=== PATIENT | male | born 1990 | race African-American/Black ===

== ENCOUNTER 2019-10-23 09:49 | Inpatient (IN) | payer OTHER ==
[~2019-10-23] VITALS: Ht 170.2 cm; Wt 48.5 kg
[2019-10-23 09:50] VITALS: BP 133/90
[2019-10-23 10:48] LABS: ABSOLUTE NEUTROPHILS 3.7 thou/uL (1.4-8.2); BASOPHILS 0.4 % (0.0-2.0); HEMATOCRIT 44.2 % (42.0-52.0); LYMPHOCYTES 24.3 % (24.0-44.0); MCH 29.5 pg (26.0-34.0); MCV 86.5 fL (80.0-100.0); MONOCYTES 8.9 % (1.0-8.0); PLATELET COUNT 257 thou/uL (150-400); POLYS 66.4 % (36.0-66.0); RBC 5.11 mil/uL (4.50-6.00); RDW 13.7 % (10.5-14.5); WBC 5.6 thou/uL (4.0-11.0)
[2019-10-23 10:52] LABS: CALCIUM 8.8 mg/dL (8.5-10.1); CREATININE 1.2 mg/dL (0.7-1.3); POTASSIUM 3.5 mmol/L (3.5-5.1)
[2019-10-23 10:58] LABS: ALBUMIN 3.8 g/dL (3.4-5.0); TOTAL BILIRUBIN 0.5 mg/dL (<0.1-1.0); TOTAL PROTEIN 8.3 g/dL (6.4-8.2)
[2019-10-23 13:58] VITALS: BP 140/50
[2019-10-23 14:02] VITALS: BP 140/50
--- NOTE | 2019-10-23 15:27 | H ---
[facility] [place] [address] HISTORY AND PHYSICAL Name: CALOS GORDILLO II Room #: 460-P ADM IN M.R.#: [id number] Admission: 10/23/19 Attend Phys: Stephan Ordonez MD Discharge: Date of : 89 Report #: [id number] THIS REPORT FOR: //name// CC: Stephan Ordonez FAM physician/PCP FAM unknown DATE OF SERVICE: 10/23/2019 ATTENDING PHYSICIAN: Dr. Ordonez. CHIEF COMPLAINT: Nausea and vomiting. HISTORY OF PRESENT ILLNESS: The patient is a very pleasant gentleman, who presented with a 3-day history of nausea, vomiting, diarrhea, and abdominal pain. The patient reports that 3 days ago, he developed vomiting. He is vomiting numerous uncountable times since. He has also developed diarrhea. In the past 24 hours, he reports that he has vomited at least 30 times and he reports that he has had at least as many bowel movements. He does endorse some blood in his recent episodes of vomiting. He endorses that his vomit appears to be the same appearance of his diarrhea, otherwise. He endorses abdominal pain diffusely, but worse in the right upper and right lower quadrant. He cannot characterize the pain. Lying on his side and curling up improves the pain. He is not sure of any other relieving factors. Lying flat on his back exacerbates the pain. He is not sure of any other exacerbating factors. He denies subjective fevers, chills, night sweats, chest pain, or shortness of air. The patient presented to the ER, where a CT scan was performed, concerning for a possible appendicitis. General Surgery was consulted for evaluation. PAST MEDICAL HISTORY: He denies. PAST SURGICAL HISTORY: Left inguinal hernia repair. SOCIAL HISTORY: 1. Endorses daily alcohol use. 2. Endorses daily tobacco use. Several cigarettes per day. 3. Endorses marijuana use. 4. 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 FAMILY HISTORY: 1. Grandmother with DVTs. 2. Several family members with a cancer. REVIEW OF SYSTEMS: CONSTITUTIONAL: No fever. No chills. [facility] [address] [place] [address] HISTORY AND PHYSICAL Name: RANDCALOS Room #: 460-P [facility] IN M.R.#: [id number] Admission: 10/23/19 Attend Phys: Stephan Ordonez MD Discharge: Date of : 89 Report #: [id number] HEENT: Denies blurring of vision, double vision, headaches, hearing loss, sinus drainage or sore throat. Denies blurring of vision, double vision, headaches, hearing loss, sinus drainage or sore throat. CARDIOVASCULAR: Denies chest pain, palpitations, orthopnea or paroxysmal nocturnal dyspnea. RESPIRATORY: Denies cough, wheezing, hemoptysis, or shortness of air. GASTROINTESTINAL: See above and below. GENITOURINARY: Denies dysuria or hematuria or kidney stones. No urinary frequency, urgency or incontinence. Denies dysuria or hematuria or kidney stones. No urinary frequency, urgency or incontinence. MUSCULOSKELETAL: No joint pain. No muscle pain. NEUROLOGICAL: Denies tremor, stroke or seizure. Denies tremor, stroke or seizure. HEMATOLOGIC / LYMPHATICS: Denies easy bruising, easy bleeding or enlarged lymph nodes. SKIN: No rash or ulceration. ENDOCRINE: No heat or cold intolerance PSYCHIATRIC: Denies depression, anxiety, or schizophrenia. PHYSICAL EXAMINATION: VITAL SIGNS: Temperature is 37, pulse is 75, blood pressure was 125/75, oxygen saturation is normal on the room air, and respiratory rate was 18. GENERAL: No apparent distress, alert and oriented x3. HEENT: PERRLA, EOMI, MMM, NCAT. NECK: Supple. No LAD. CARDIOVASCULAR: Regular rhythm and rate. Hemodynamically stable. Normal capillary refill. Regular rhythm and rate. Hemodynamically stable. Normal capillary refill. PULMONARY: Nonlabored. Clear to auscultation bilaterally. ABDOMEN: Soft, tender to palpation diffusely, reports ____ tenderness, right lower and right upper quadrants, mildly distended, voluntarily guarding, but that was not reproducible. No rebound, no rigidity, no hernias appreciated, no previous surgical incisions appreciated. EXTREMITIES: Calves soft, nontender, no edema. SKIN: No rashes or bruises. PSYCHIATRIC: Normal mood and affect Normal mood and affect. NEUROLOGICAL: Grossly intact. CN II-XII grossly intact. MUSCULOSKELETAL: 5/5 strength in upper extremities and lower extremities bilaterally. LYMPHATICS: No cervical, inguinal, or supraclavicular lymphadenopathy. LABORATORY DATA: White blood count was 5, hemoglobin normal, hematocrit normal, and platelets normal. Sodium and creatinine were normal. IMAGING: CT abdomen and pelvis, impression: Please review chart for CT report. I did review the CT scan with the radiologist. The patient does have a 7 mm [facility] [address] [place] [address] HISTORY AND PHYSICAL Name: CALOS GORDILLO II Room #: 460-P ADM IN M.R.#: [id number] Admission: 10/23/19 Attend Phys: Stephan Ordonez MD Discharge: Date of : 89 Report #: [id number] appendix, but the radiologist that I reviewed the scan with in person did not feel as though the patient had findings concerning for appendicitis. In particular, there is no periappendiceal fat stranding. The possibility of early appendicitis could not be ruled out. The radiologist, I reviewed the films with in person, was not too impressed by the small bowel thickening, but did note a few mesenteric lymph nodes that were enlarged. Not consistent with mesenteric lymphadenitis, however. ASSESSMENT AND PLAN: The patient is a very pleasant 28-year-old gentleman with nausea, vomiting, diarrhea, and abdominal pain. 1. Admit to Dr. Ordonez. 2. NPO. 3. IV fluid resuscitation. 4. IV antiemetics. 5. IV analgesics. 6. Serial abdominal exams. I will follow the patient closely. I currently feel as though the patient's constellation of symptoms and findings are more consistent with gastroenteritis given that he had vomited so many times in the last 24 hours and he has had as many episodes of diarrhea. However, if his finding changed to be more consistent with appendicitis, we will take him for a laparoscopic appendectomy. 7. Monitor vomitus and diarrhea for blood. It concerns regarding GI bleed arise, we will consult GI for endoscopy. <ELECTRONICALLY SIGNED> By: Stephan Ordonez MD 10/23/19 1527 [id number] Stephan Ordonez MD /nt
[2019-10-23 15:40] VITALS: BP 146/70
--- NOTE | 2019-10-23 16:51 | NUR ---
PATEINT ARRIVED FROM ED VIA STRECHER, ALERT AND ORIENTED X4. C/O SEVERE ABD PAIN, MEDICATED NEEDED, VSS AND REMAINS NPO.
[2019-10-23 20:43] VITALS: BP 136/74
[2019-10-23 22:45] LABS: URINE BILIRUBIN 1+ (Negative); URINE BLOOD NEGATIVE (Negative); URINE CLARITY CLEAR; URINE COLOR YELLOW; URINE GLUCOSE-RANDOM* NEGATIVE (Negative); URINE KETONES TRACE (Negative); URINE LEUKOCYTES-REFLEX NEGATIVE (Negative); URINE NITRITE-REFLEX NEGATIVE (Negative); URINE PROTEIN (DIPSTICK) NEGATIVE (Negative); URINE UROBILINOGEN 0.2 E.U./dl (0.2-1.0)
--- NOTE | 2019-10-24 04:56 | NUR ---
Assumed care @1915. pt a&ox4. pt is adlib in room. pt throw up once this shift but declined antiemetics. pain controled with ordered pain meds. pt stated that he has been having multiple loose stools; sample collected and sent to lab. pt was placed on isolation-contact prec to rule out c.diff. pt's sister called to check on pt. pt gave consent to update sister on condition. sister requested that pt be transfered to due to the long distance between her and here. nurse informed pt, but pt declined, stating that he would not like to be transfered. pt remains on npo, v/s stable. no s/s of distress. following poc and continous monitoring
[2019-10-24 05:28] LABS: ALBUMIN 3.1 g/dL (3.4-5.0); CALCIUM 8.7 mg/dL (8.5-10.1); CREATININE 1.2 mg/dL (0.7-1.3); MAGNESIUM 1.8 mg/dL (1.8-2.4); PHOSPHORUS 3.4 mg/dL (2.5-4.9)
[2019-10-24 05:32] LABS: HEMATOCRIT 39.2 % (42.0-52.0); HEMOGLOBIN 13.1 gm/dL (14.0-18.0); MCHC 33.4 g/dL (28.0-37.0); MCV 86.7 fL (80.0-100.0); RBC 4.52 mil/uL (4.50-6.00); RDW 13.3 % (10.5-14.5); WBC 4.2 thou/uL (4.0-11.0)
[2019-10-24 08:10] VITALS: BP 116/73
--- NOTE | 2019-10-24 12:15 | NUR ---
Assumed pt care at 7am.Pt in bed sleeping on and off. Assessment completed. Vss.Pt c/o rt abdominal pain rated 8/10.Pain shot given with relief.Dr Ordonez here,he said pt might have surgery today but not comfirm.Family here to visit. Rn instructed them on isolation prevention.Will continue to monitor.
--- NOTE | 2019-10-24 16:12 | NUR ---
CONSULT [id number] WAS COMPLETED BY THIS CRUSHER FOREMAN TODAY. PATIENT EXPRESSED NO SPIRITUAL NEEDS AT THIS TIME. WE DID LIFE REVIEW. WE CONCLUDED IN PRAYER.
[2019-10-24 16:40] VITALS: BP 126/91
[2019-10-24 19:42] VITALS: BP 152/99
[2019-10-25 05:53] LABS: HEMATOCRIT 38.6 % (42.0-52.0); HEMOGLOBIN 12.7 gm/dL (14.0-18.0); MCH 28.6 pg (26.0-34.0); MCV 86.8 fL (80.0-100.0); RBC 4.45 mil/uL (4.50-6.00); RDW 13.5 % (10.5-14.5); WBC 3.1 thou/uL (4.0-11.0)
[2019-10-25 06:06] LABS: ALBUMIN 2.9 g/dL (3.4-5.0); CALCIUM 8.5 mg/dL (8.5-10.1); PHOSPHORUS 3.3 mg/dL (2.5-4.9); POTASSIUM 3.7 mmol/L (3.5-5.1)
[2019-10-25 07:43] VITALS: BP 135/82
--- NOTE | 2019-10-25 08:01 | NUR ---
PROGRESS PT A/O X4 UP AD GREGOR, RATING PAIN A 6 TO 8 TAKING OXYCODONE WITH EFFECT ONE DOSE THIS SHIFT AND PT SLEPT THROUGHOUT NIGHT. VOIDING QS DENIES NAUSEA OR ANY OTHER PROBLEMS CONTINUE POC
--- NOTE | 2019-10-25 10:40 | NUR ---
Assess due to low BMI notification however wt recorded was inaccurate. Pt admit with recent hx increased diarrhea and emesis. Cdiff negative, with suspected viral illness. Diet newly advanced this am and pt eager to eat. States usual wt is 180 lb and feels has lost some wt due to acute illness. Wt of 107 lb is not accurate. Has menu to order own food preferences. Low nutrition risk
[2019-10-25 15:30] VITALS: BP 135/82
--- NOTE | 2019-10-25 15:40 | NUR ---
Assumed pt care at 7am.Pt in bed slleping till breakfast time.Assessment completed.vss.Pt wanted to eat regular meal and dc home by noon.Dr Ordonez notified and rounded on pt.Late breakfast given and well tolerated.Pt ambulated in ahllways with girl friend.Around noon,pt left the unit and go to food court for over one hour.Later this afternoon,pt resurface to the unit. Dr Ordonez notified and dc order noted.Dc summary compile and reviewed with pt.Dc summary copy given.Pt dc home at 1540 after saline lock dc'd.
== END 2019-10-25 15:40 | disposition home or self-care (01) | DRG 392 ==
LOC: ER 09:49 → 4W 12:34 → EROBS 12:34 → 4W 14:08
PROVIDERS: Physician Assistant; ADMIT Surgery
DX: R10.9 Unspecified abdominal pain (principal); Z88.0 Allergy status to penicillin; Z88.2 Allergy status to sulfonamides; Z88.8 Allergy status to other drugs, medicaments and biological substances; Z79.899 Other long term (current) drug therapy
CPT/HCPCS: 10040